=== PATIENT | female | born 1960 | race Caucasian/White ===

== ENCOUNTER 2016-08-01 09:18 | Day surgery (SDC) | payer OTHER ==
[~2016-08-01 09:18] MED LIST: ceFAZolin 2 GM/DEXTROSE 100 ML IV ONE
[2016-08-01] MEDS ORDERED: PROPOFOL 200 MG/20 ML VIAL ONE ×3 (09:58→12:06)
[2016-08-01] MEDS ORDERED: ROPIVACAINE HCL 150 MG/30 ML INJ ONE (09:59)
[2016-08-01] MEDS ORDERED: LIDOCAINE 1% 5 ML SDV ONE (10:00)
[2016-08-01] MEDS ORDERED: CEFAZOLIN 2 GM/DEXTROSE/100 ML BAG IV ONE (10:00)
[2016-08-01] MEDS ORDERED: LIDOCAINE 2% 5 ML SDV ONE (10:05)
[2016-08-01] MEDS ORDERED: BUPIVACAINE/EPI 0.25% 30 ML SDV ONE (10:27)
[2016-08-01] MEDS ORDERED: EPINEPHrine 30 MG/30 ML MDV ONE (10:27)
[2016-08-01] MEDS ORDERED: LIDOCAINE 1% 5 ML SDV ID PRN (10:44)
[2016-08-01] MEDS ORDERED: LR 1,000 ML IV ONE (10:44)
[2016-08-01] MEDS ORDERED: fentaNYL 100 MCG/2 ML INJ ONE ×2 (11:12→12:47)
[2016-08-01] MEDS ORDERED: MIDAZOLAM 2 MG/2 ML VIAL ONE (11:20)
[2016-08-01] MEDS ORDERED: HYDROmorphONE/DILAUDID 1 MG/ML SYR ONE ×3 (13:00→13:25)
--- NOTE | 2016-08-01 14:16 | GOP ---
[f rep st] OPERATIVE REPORT DATE OF OPERATION: 08/01/2016 SURGEON: Rolly Hutchinson MD ANESTHESIA: General with scalene block. ANESTHESIOLOGIST: Dr. Castro. PREOPERATIVE DIAGNOSIS: 1. Biceps tendon tearing and subluxation, right shoulder. 2. Subacromial impingement syndrome, right shoulder. POSTOPERATIVE DIAGNOSIS: 1. Biceps tendon tearing and subluxation, right shoulder. 2. Subacromial impingement syndrome, right shoulder. 3. Anterior superior and posterior superior labral tearing, right shoulder. PROCEDURE PERFORMED: 1. Right shoulder arthroscopy with extensive glenohumeral debridement, including debridement of ante rior superior plus posterior superior labral tears and biceps tendon tenotomy. 2. Arthroscopic subacromial decompression, right shoulder. FINDINGS: INDICATIONS: This is a 56-year-old female with chronic and severe pain in her shoulder, failing nono perative treatment, being admitted for surgical are. We have gone over risks, benefits, and limitati ons of the procedure preoperatively with the patient. DESCRIPTION OF PROCEDURE: After an adequate general anesthetic was obtained, exam under anesthesia r evealed a full range of motion with no abnormal laxity. The patient was now placed in the left later al decubitus position on the blanco bag with an axillary roll. The right shoulder was prepped and drap ed in the usual sterile fashion, and hung with 12 pounds of overhead traction. The standard posterio r arthroscopic portal was established with a 15 blade. A 4 mm, 30-degree arthroscope was introduced t he posterior portal into the glenohumeral joint, and a systematic examination of the joint was kaylin d out. An anterior portal was established and cannulized in the routine fashion. The articular surfaces were normal. There was degenerative tearing of the anterior superior and post erior superior labrum, without a labral detachment. Both of these tears were now debrided down to st able labral tissue with a small shaver. There was also some degenerative fraying of the articular si de of the rotator cuff tendon, which required a debridement as well. The biceps tendon showed a part ial thickness tearing entering the groove with a horizontal course, consistent with the medial sublux ation. Consistent with the preoperative discussion with the patient, we performed a tenotomy, releas ing this off the superior glenoid tubercle with electrocautery. The remainder of the labrum and infe rior pouch were of normal size. There was some fraying of the superior leading edge of the subscapul hemanth tendon, which also required a minimal debridement. The arthroscope was introduced in the subacromial space. Lateral portal was established and cannuliz ed. There was evidence of impingement with hypertrophy and fraying of the coracoacromial ligament. This was divided off the anterior acromion using electrocautery. The anterior hook of the acromion w as now flattened from the anterolateral corner to the AC joint. This was completed with arthroscopic visualization lateral and instrumentation posteriorly. The rotator cuff tendon was thoroughly inspected. There was no tear present, which would require any repair. There was some fraying, which was lightly debrided with the shaver. The arthroscopic instruments were removed. The portals were closed using interrupted 3-0 nylon sutur es, and 20 cc of 0.25% Marcaine with epinephrine was injected. Sterile dressings were applied, followed by a simple arm sling. There were no complications. The patient tolerated the procedure well, and returned to the recovery room in stable condition. /[id number]/MODL
== END 2016-08-01 15:05 | disposition home or self-care (01) ==
LOC: FSGY 09:18
PROVIDERS: ATTEND Orthopaedic Surgery Sports Medicine
PROC: 0MB14ZZ Excision of Right Shoulder Bursa and Ligament, Percutaneous Endoscopic Approach (ICD-10-PCS; principal; 2016-08-01 10:30)
PROC: 0RNJ4ZZ Release Right Shoulder Joint, Percutaneous Endoscopic Approach (ICD-10-PCS; principal; 2016-08-01 10:30)
DX: M25.811 Other specified joint disorders, right shoulder (principal); S46.111A Strain of muscle, fascia and tendon of long head of biceps, right arm, initial encounter; M79.7 Fibromyalgia; W19.XXXA Unspecified fall, initial encounter
CPT/HCPCS: J0690; J1170; J2250; J2704; J2795; J3010